=== PATIENT | male | born 1970 | race Caucasian/White ===

== ENCOUNTER 2018-03-13 10:38 | Emergency (ER) | payer SELFPAY ==
[2018-03-13 10:40] VITALS: BP 134/100; PULSE 105; RESP 16; TEMP 36.9; O2SAT 99; BMI 22.1
--- NOTE | 2018-03-13 10:55 | CT_ITS ---
STUDY: CT BRAIN WITHOUT CONTRAST REASON FOR EXAM: Male, 47 years old. Vision changes, dizziness, right eye problems s/p injury 5 years ago. RADIATION DOSAGE (If Supplied By Facility): CTDIvol = ( 44.99 ) mGy, DLP = ( 812.98 ) mGycm TECHNIQUE: Transaxial CT imaging of the brain was performed without administration of intravenous contrast material. Individualized dose optimization techniques were used for this CT. COMPARISON: None. FINDINGS: Normal soft tissue structures. Normal calvarium. Normal size ventricles and extra-axial spaces for the patient's age. Normal white matter tracts of the cerebral hemispheres. Normal basal ganglia and thalami. Normal brainstem. Normal cerebellum. There is no intracranial hemorrhage. There are no findings of an acute ischemic infarction. Normal visualized paranasal sinuses. CT/Brain/Head without Contrast IMPRESSION: Normal unenhanced CT scan of the brain. Electronically Signed: Corie Santiago MD at 11:31 EDT Tel , Service support ,
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
[2018-03-13 12:29] VITALS: BP 149/90; PULSE 78; RESP 16; O2SAT 99
== END 2018-03-13 12:33 | disposition home or self-care (01) ==
PROVIDERS: Emergency Provider Emergency Medicine
DX: H53.8 Other visual disturbances (principal); Z72.0 Tobacco use
CPT/HCPCS: 70450; 99284

== ENCOUNTER 2018-09-02 13:30 | Emergency (ER) | payer MEDICAID, SELFPAY ==
[2018-09-02 13:30] VITALS: BP 133/106; PULSE 112; RESP 14; TEMP 36.8; O2SAT 98; BMI 18.1
--- NOTE | 2018-09-02 14:39 | ED.RN ---
CHALINO FROM LAB CALLED WITH POSITIVE STREP A, NOTE LEFT FOR DR. ALLEN RELATED TO SAME, WILMA BROUSSARD RN, INFORMED OF SAME.
--- NOTE | 2018-09-02 14:49 | ED.VISSUMM ---
- ER Visit Summary Date of Service: 09/02/18 Chief Complaint: Bad sore throat History of Present Illness: The patient is a 47 M who presents with a sore throat with subjective fever. He denies rhinorrhea, cough or shortness of breath. He states he had strep throat at the age of 12 and this feels similar. He has no other complaints please read written note for complete detail. Physical Examination: Vital signs noted and pressure is slightly elevated 133/106 and heart rate 112. He is not febrile nor is he hypoxic. He is well-developed but not well-nourished. He is not well-groomed. HEENT exam is remarkable for erythema of the posterior pharynx and tonsils. There may be one small exudative pocket. Trach is midline. There is no stridor with aspiration. There is no cervical lymphadenopathy. Heart is regular without murmur, gallop or rub. S1 and S2 are normal. Lungs are clear to auscultation with good movement of air bilaterally. Test Results: Rapid strep screen positive Emergency Department Course and Treatment: Since patient Centor score is 2 rapid strep was obtained. Since the rapid strep was positive he was treated with azithromycin because of penicillin allergy. Treatment Plan: Azithromycin and appropriate home-going instructions Disposition: Discharged home Impression: Strep tonsillitis This note was generated with [employer] dictation software. It may contain incorrect words, spelling, and punctuation that were not noted in review of the chart prior to signing ED Disposition - Plan for ED Patient: Disposition: Home or Assisted Living Chief Complaint: Sore Throat Instructions: ED Strep Pharyngitis Conf Prescriptions: Azithromycin [Zithromax Z-Keny] 250 mg PO UD #1 box Referrals: Care Physician,No Primary [Primary Care Provider] - Additional Instructions: Salt water gargles 6-8 times a day for the next 3-5 days. Chloraseptic spray for throat discomfort as instructed on bottle.
--- NOTE | 2018-09-02 14:53 | ED.DCSUM_ITS ---
- ER Visit Summary Date of Service: 09/02/18 Chief Complaint: Bad sore throat History of Present Illness: The patient is a 47 M who presents with a sore throat with subjective fever. He denies rhinorrhea, cough or shortness of breath. He states he had strep throat at the age of 12 and this feels similar. He has no other complaints please read written note for complete detail. Physical Examination: Vital signs noted and pressure is slightly elevated 133/106 and heart rate 112. He is not febrile nor is he hypoxic. He is well- developed but not well-nourished. He is not well-groomed. HEENT exam is remarkable for erythema of the posterior pharynx and tonsils. There may be one small exudative pocket. Trach is midline. There is no stridor with aspiration. There is no cervical lymphadenopathy. Heart is regular without murmur, gallop or rub. S1 and S2 are normal. Lungs are clear to auscultation with good movement of air bilaterally. Test Results: Rapid strep screen positive Emergency Department Course and Treatment: Since patient Centor score is 2 rapid strep was obtained. Since the rapid strep was positive he was treated with azithromycin because of penicillin allergy. Treatment Plan: Azithromycin and appropriate home-going instructions Disposition: Discharged home Impression: Strep tonsillitis This note was generated with [employer] dictation software. It may contain incorrect words, spelling, and punctuation that were not noted in review of the chart prior to signing ED Disposition - Plan for ED Patient: Disposition: Home or Assisted Living Chief Complaint: Sore Throat Instructions: ED Strep Pharyngitis Conf Prescriptions: Azithromycin [Zithromax Z-[place]y] 250 mg PO UD #1 box Referrals: Care Physician,No Primary [Primary Care Provider] - Additional Instructions: Salt water gargles 6-8 times a day for the next 3-5 days. Chloraseptic spray for throat discomfort as instructed on bottle.
[2018-09-02] MEDS: Ibuprofen 400 MG Tablet 800 MG PO (15:02)
== END 2018-09-02 15:04 | disposition home or self-care (01) ==
PROVIDERS: Emergency Provider Emergency Medicine
DX: J03.00 Acute streptococcal tonsillitis, unspecified (principal); R03.0 Elevated blood-pressure reading, without diagnosis of hypertension; Z72.0 Tobacco use; Z88.0 Allergy status to penicillin
CPT/HCPCS: 87880; 99281

== ENCOUNTER 2018-11-06 12:22 | Emergency (ER) | payer MEDICAID, SELFPAY ==
[2018-11-06 12:23] VITALS: BP 125/80; PULSE 78; RESP 16; TEMP 36.4; O2SAT 97; BMI 23.7
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
[2018-11-06] MEDS: HYDROcodone Bitartrate/Apap 5/325 Tablet PO (12:50)
== END 2018-11-06 14:10 | disposition home or self-care (01) ==
PROVIDERS: Emergency Provider Emergency Medicine
DX: M25.571 Pain in right ankle and joints of right foot (principal); Z72.0 Tobacco use
CPT/HCPCS: 73610; 99283